=== PATIENT | male | born 1975 | race Caucasian/White ===

== ENCOUNTER 2023-11-01 08:57 | Outpatient (REF) | payer OTHER, SELFPAY ==
--- NOTE | ~2023-11-01 | XR_ITS ---
EXAMINATION: XR HIP, LEFT CLINICAL INFORMATION: Pain. COMPARISON: None available. TECHNIQUE: AP and frog-leg lateral views of the left hip. FINDINGS: No fracture or dislocation is seen. Alignment is anatomic. Hip joint space is maintained. The left femoral head is smooth. A tiny accessory ossification center is incidentally noted lateral to the left acetabular roof. Soft tissues are unremarkable. There are pelvic phleboliths. XR/XR hip LT min 2V IMPRESSION: Normal left hip.
== END 2023-11-01 08:58 | disposition home or self-care (01) ==
LOC: HO.XRAY 08:57
PROVIDERS: Visit Provider Psychiatry & Neurology Neurology
DX: M25.552 Pain in left hip (principal)
CPT/HCPCS: 73502